=== PATIENT | male | born 1955 | race Caucasian/White ===

== ENCOUNTER 2016-08-05 11:15 | Emergency (ER) | payer OTHER ==
[~2016-08-05] VITALS: Ht 177.8 cm; Wt 93.9 kg
[2016-08-05] MEDS ORDERED: METFORMIN HCL500 M4 PO (11:28)
[2016-08-05] MEDS ORDERED: LISINOPRIL5 M1 PO (11:28)
[2016-08-05] MEDS ORDERED: SIMVASTATIN40 M1 PO (11:28)
--- NOTE | 2016-08-05 12:08 | ED GENERAL ADULT ---
History of Present Illness General Chief Complaint: Dizziness Stated Complaint: LIGHTHEADED,DIZZY Source: patient Exam Limitations: no limitations Vital Signs & Intake/Output Vital Signs & Intake/Output Vital Signs Date Time Temp Pulse Resp B/P Pulse O2 O2 Flow FiO2 Ox Delivery Rate 08/05 1313 96.8 88 20 131/82 97 Room Air 08/05 1238 80 98/54 08/05 1127 97.6 93 16 120/83 97 Room Air Allergies Coded Allergies: Penicillins (UNKNOWN 08/05/16) Reconcile Medications Lisinopril 5 MG TABLET 1 TAB PO DAILY HTN (Reported) Metformin HCl (Metformin HCl ER) 500 MG TAB.ER.24H 2 TAB PO BID BS (Reported) Simvastatin (Simvastatin*) 40 MG TABLET 1 TAB PO QPM CHOLESTEROL (Reported) Triage Note: PT STATES HE FEELS LIKE PASSING OUT AT TIMES ON AND OFF. PT STATES THIS STARTED TODAY. PT DENEIS CHEST PAIN OR SOB. PT STATES THIS HAS NOT HAPPEND BEFORE. PT DID EAT BREAKFAST TODAY. Triage Nurses Notes Reviewed? yes HPI: Patient is a 61 year old male presents complaining of episodes of warmth that originate in his chest radiate to his head and down to his bilateral upper extremities. Episodes last for approximately 10 seconds and resolved. Patient reports that he has decreased hearing during these episodes and feels lightheaded and a near-syncope sensation. Episodes were occurring approximately every 10 minutes at home with no inciting or aggravating factors. Patient has not had any episodes since presenting to the emergency department. Patient reports decreased fluid intake over the past 24 hours as his was hospitalized yesterday for syncopal episode after having 3-4 days of vomiting. Patient denies chest pain, palpitations, headache, syncope, vomiting, diarrhea, fevers, chills. Past History Travel History Traveled to [place] past 21 day No Medical History Any Pertinent Medical History? see below for history Cardiovascular: hypertension, hyperlipidemia Endocrine: diabetes Surgical History Surgical History: non-contributory Psychosocial History What is your primary language Polish Tobacco Use: Quit >30 days ago ETOH Use: denies use Illicit Drug Use: denies illicit drug use Family History Hx Contributory? No Review of Systems Review of Systems Constitutional: Denies: chills, fever. EENTM: Denies: blurred vision, visual changes. Respiratory: Denies: cough, short of breath. Cardiovascular: Denies: chest pain, palpitations, syncope. GI: Denies: abdominal pain, nausea, vomiting. Genitourinary: Reports: no symptoms. Musculoskeletal: Denies: back pain, neck pain. Skin: Denies: rash. Neurological/Psychological: Denies: headache, numbness, tonic-clonic seizures, unable to move lower ext, unable to move upper ext. Hematologic/Endocrine: Denies: bruising, bleeding. Immunologic/Allergic: Denies: splenectomy, lymphadenopathy. Physical Exam Physical Exam General Appearance: well developed/nourished, alert, awake Head: atraumatic, normal appearance Eyes: Bilateral: normal appearance, PERRL, EOMI. Ears, Nose, Throat: normal pharynx, hearing grossly normal Neck: normal inspection, supple, full range of motion Respiratory: normal breath sounds, chest non-tender, no respiratory distress, lungs clear Cardiovascular: regular rate/rhythm, no appreciable murmur Peripheral Pulses: 2+ radial (R), 2+ radial (L), 2+ dorsalis pedis (R), 2+ dorsalis pedis (L) Gastrointestinal: soft, non-tender Back: normal inspection, normal range of motion Extremities: normal inspection, normal capillary refill, normal range of motion, no edema Neurologic/Psych: no motor/sensory deficits, awake, alert, oriented x 3, normal gait, normal mood/affect, graves registration specialist II-XII nml as tested Skin: intact, normal color, warm/dry Lymphatic: no anterior cervical melissa Core Measures ACS in differential dx? Yes ASA ordered for poss ACS? No-ACS ruled out CVA/TIA Diagnosis: No Severe Sepsis Present: No Septic Shock Present: No Progress Differential Diagnoses I considered the following diagnoses in my evaluation of the patient: arrhythmia , dehydration, electrolyte abnormality, diabetic emergency, anemia, ACS, aortic dissection, vasovagal episodes Plan of Care: Orders Procedure Date/time Status MISTAKE 08/05 1154 Active Telemetry/Election Watcher 08/05 1154 Active TROPONIN LEVEL 08/05 1154 Complete COMPREHENSIVE METABOLIC PANEL 08/05 1154 Complete CBC WITHOUT DIFFERENTIAL 08/05 1154 Complete EKG 08/05 1129 Active Laboratory Tests 08/05/16 1205: Anion Gap 11, Estimated GFR > 60, BUN/Creatinine Ratio 20.0, Glucose 99, Calcium 9.9, Total Bilirubin 0.8, AST 28, ALT 63, Alkaline Phosphatase 62, Troponin I < 0.01, Total Protein 7.3, Albumin 4.5, Globulin 2.8, Albumin/Globulin Ratio 1.6, CBC w Diff NO MAN DIFF REQ, RBC 5.86, MCV 85.7, MCH 28.5, RDW 13.6, MPV 8.4, Gran % 65.3, Lymphocytes % 24.0, Monocytes % 9.6 H, Eosinophils % 0.7, Basophils % 0.4, Absolute Granulocytes 7.2 H, Absolute Lymphocytes 2.6, Absolute Monocytes 1.0 H, Absolute Eosinophils 0.1, Absolute Basophils 0, PUBS MCHC 33.[address] scan of chest approximately 4-5 years ago showing normal caliber aorta. 08/05/2016 1:11:49 PM: Patient remained symptom free throughout his emergency department stay. Patient in sinus rhythm on the diagnostic cardiac sonographer with occasional PACs. No significant ventricular arrhythmias. Results of labs discussed with patient. Patient appears stable for discharge with follow-up with his primary care doctor this week. (AUGIE KENNEDY,MELISSA) Initial ED EKG: normal axis, normal intervals, normal p-waves, normal QRS complex, normal sinus rhythm, no ST T wave changes Rhythm Strip: normal sinus rhythm, PAC Departure Departure Time of Disposition: 1311 Disposition: HOME OR SELF CARE Condition: Stable Clinical Impression Primary Impression: Lightheadedness Referrals: KEVEN REYEZ MD (PCP/Family) Additional Instructions: Increase your fluid intake. Follow-up with your primary doctor within 1 week for further evaluation. Call Sunday for appointment. Return to the emergency department if you develop chest pain, difficulty breathing, numbness, weakness, or worsening of symptoms. Departure Forms: Customer Survey General Discharge Information Critical Care Note Critical Care Note Critical Care Time: non-applicable
[2016-08-05 12:15] LABS: ABSOLUTE BASOPHIL COUNT 0 /CUMM (0.0-0.2); ABSOLUTE EOSINOPHIL COUNT 0.1 /CUMM (0.0-0.7); ABSOLUTE GRANULOCYTE CT 7.2 /CUMM (1.4-6.5); ABSOLUTE LYMPH COUNT 2.6 /CUMM (1.2-3.4); BASOPHIL % 0.4 % (0.0-2.0); EOSINOPHIL % 0.7 % (0-5); GRANULOCYTE % 65.3 % (42.2-75.2); HEMATOCRIT 50.3 % (42-52); MEAN CORPUSCULAR HGB 28.5 PG (27.0-31.0); MEAN CORPUSCULAR HGB CONC 33.2 G/DL (33.0-37.0); MEAN CORPUSCULAR VOLUME 85.7 FL (80.0-94.0); MEAN PLATELET VOLUME 8.4 FL (7.4-10.4); PLATELET COUNT 249 /CUMM (130-400); RBC DISTRIBUTION WIDTH 13.6 % (11.5-14.5); RED BLOOD CELL CT 5.86 /CUMM (4.70-6.10); WHITE BLOOD CELL COUNT 10.9 /CUMM (4.8-10.8)
[2016-08-05 13:13] VITALS: BP 131/82
== END 2016-08-05 13:33 ==
LOC: ERH 11:15
PROVIDERS: Physician Assistant
DX: R42 Dizziness and giddiness (principal)
CPT/HCPCS: 93005; 93010

== ENCOUNTER → 2017-08-28 | Day surgery (SDC) | payer OTHER ==
[~2017-08-28] VITALS: Ht 177.8 cm; Wt 102.1 kg
[~2017-08-28] MED LIST: DILTIAZEM 24HR240 MG PO; ELIQUIS5 M1 PO; FLECAINIDE ACE150 M1 PO; LISINOPRIL2.5 M1 PO; LISINOPRIL5 M1 PO; METFORMIN HCL500 M4 PO; PRAVACHOL80 M1 PO; SIMVASTATIN40 M1 PO; ZYMAXID2.5 ML OS
--- NOTE | 2017-08-28 09:43 | Operative Report ---
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 The risks, benefits, and alternatives to surgery were discussed at length with the patient. Informed consent was obtained. The patient was brought to the operating room where the left eye was prepped and draped in the normal sterile fashion. A speculum was placed on the left eye with good exposure. A stab incision was made using a paracentesis blade. Intracameral lidocaine was placed. Viscoelastic was used to form the anterior chamber. A clear corneal incision was made using keratome blade. A continuous curvilinear capsulorrhexis was made using a cystotome needle followed by Utrata forceps. There was no extension of the rhexis. Hydrodissection was performed using balanced salt solution. The cataract was removed using a stop and chop technique. Residual cortex was removed using coaxial irrigation and aspiration. The capsule was polished using irrigation and aspiration and the posterior capsule was cleaned using a balanced salt solution jet. There was no residual lens material inside the eye. The capsular bag was reformed using viscoelastic. Because of some zonular instability a capsular tension ring was placed entirely within the capsular without complication. An intraocular lens SV 25 T3 of power 17.5 was verified and confirmed. It was loaded into an injector and injected into the eye at [id number]. The lens was placed entirely within the capsular bag. Viscoelastic was evacuated using irrigation and aspiration. The wounds were stromally hydrated and the eye filled to physiologic pressure using balanced salt solution. Intracameral cefuroxime was placed. Speculum was removed and a shield was placed on the eye. The patient was brought to the recovery area without incident. Instructions were given to follow-up the next day for routine postoperative care.
== END ==
LOC: STS 02:46
DX: H25.89 Other age-related cataract (principal); H26.8 Other specified cataract; E11.9 Type 2 diabetes mellitus without complications; Z79.84 Long term (current) use of oral hypoglycemic drugs; I25.10 Atherosclerotic heart disease of native coronary artery without angina pectoris; Z79.01 Long term (current) use of anticoagulants; F17.200 Nicotine dependence, unspecified, uncomplicated; I10 Essential (primary) hypertension
CPT/HCPCS: J2250; V2787